=== PATIENT | male | born 1965 | race Caucasian/White ===

== ENCOUNTER 2025-06-18 14:48 | Emergency (ER) | payer OTHER, SELFPAY ==
[2025-06-18 14:55] VITALS: BMI 21.4
[2025-06-18] MEDS: XYLOCAINE VISCOUS CUP 15 ML PO (14:57)
[2025-06-18 15:00] VITALS: BP 175/101
--- NOTE | 2025-06-18 16:01 | ED.GENMED ---
History of Present Illness
<Ernie Dubois PA-C - Last Filed: 06/18/25 16:06>
General
Chief Complaint: Insect Sting
Source: patient
Exam Limitations: none
Time Seen by Provider: 06/18/25 15:04
History of Present Illness
History of Present Illness:
60-year-old male presents with foreign body sensation in left ear starting today. He is riding his bike and felt an insect behind his ear and no significant pain to the left ear. No other complaints
Past History
<MAHAD Servin Last Filed: 06/18/25 16:06>
Past History
ED Past Medical History: Other (Kidney stones) and Other (Chronic arm shoulder and leg pain, chronic pain syndrome/narcotic dependent�follows with pain management.)
ED Past Surgical History: Orthopedic (Ankle, pelvis)
Social History
Tobacco: Smoker
Alcohol: None
Personal:
Living: with family
Employment: Employed
Family History
Family History: Other (Uncontributory)
Phy Exam
<MAHAD Servin Last Filed: 06/18/25 16:06>
Physical Exam
Physical Exam:
General: Uncomfortable appearing male no acute distress
HEENT normal cephalic external canal with foreign body noted. There is a moderate mount of cerumen and there is well
Skin: Surrounding skin is without erythema
Course
<MAHAD Servin Last Filed: 06/18/25 16:06>
Orders/Labs/Results
Orders:
Orders
06/18/25 14:56
Viscous Lidocaine 2% [Xylocaine Viscous Cup] 15 ml .ROUTE .[facility]
06/18/25 14:57
Viscous Lidocaine 2% [Xylocaine Viscous Cup] 15 ml PO Q3HPRN PRN
Vital Signs
Initial and Last Documented VS:
Initial Vital Signs
Pulse Resp BP Pulse Ox
121 24 175/101 96
06/18/25 15:00 06/18/25 15:00 06/18/25 15:00 06/18/25 15:00
Last Documented Vital Signs
Pulse Resp BP Pulse Ox
121 24 175/101 96
06/18/25 15:00 06/18/25 15:00 06/18/25 15:00 06/18/25 15:00
<Aimee Leon DO - Last Filed: 06/18/25 16:07>
Orders/Labs/Results
Orders:
Orders
06/18/25 14:56
Viscous Lidocaine 2% [Xylocaine Viscous Cup] 15 ml .ROUTE .[facility]
06/18/25 14:57
Viscous Lidocaine 2% [Xylocaine Viscous Cup] 15 ml PO Q3HPRN PRN
Vital Signs
Initial and Last Documented VS:
Initial Vital Signs
Pulse Resp BP Pulse Ox
121 24 175/101 96
06/18/25 15:00 06/18/25 15:00 06/18/25 15:00 06/18/25 15:00
Last Documented Vital Signs
Pulse Resp BP Pulse Ox
121 24 175/101 96
06/18/25 15:00 06/18/25 15:00 06/18/25 15:00 06/18/25 15:00
<Ernie Dubois PA-C - Last Filed: 06/18/25 16:06>
MDM/Problems Addressed
Differential Diagnosis Includes:
Foreign body left ear. The ear was copiously irrigated with saline and multiple attempts were made with alligator forceps curettes and irrigation to remove the foreign body. Once the foreign body was in a good position was able to be removed with
a pair of alligator forceps in its entirety. The ear was reinspected tympanic membrane is intact but irritated will start on antibiotic drops for the ear.
<Ernie Dubois PA-C - Last Filed: 06/18/25 16:06>
*Pulse Oximetry
SaO2: 96
Oxygen Mode of Delivery: Room air
Patient hypoxic: no
*Critical Care Note
Total Time (30-74mins, 75-104mins- exclusive of procedures): Not Applicable
ED Attending Note
<Ernie Dubois PA-C - Last Filed: 06/18/25 16:06>
-
Portions of this chart may have been created with voice recognition software.� Occasional wrong word or��sound alike� substitutions may have occurred due to the inherent limitations of voice recognition software.
<Aimee Leon DO - Last Filed: 06/18/25 16:07>
ED Attending Note
Patient seen and examined by attending physician: Yes
I performed the substantive portion of visit, reviewed & personally made and approve the management plan that is documented in note by myself or VINCENT.: Yes
I performed a history and physical exam of patient and discussed management with resident, I reviewed resident's note and agree with documented findings and plan of care.: Yes
ED Attending Note:
60-year-old male presenting to the emergency department for concern of bug to the ear. Prior to arrival, patient was on his bicycle and felt tingling to his left ear with severe pain. Patient arrives to the emergency department by medics and
extremis due to pain and discomfort. Vital signs significant for high blood pressure and tachycardia, however, patient is discomfort
Prior to examination, did have nurse but this is lidocaine and patient's here because she still felt the bug moving around. On my exam, patient is still having discomfort, however does not feel the bug moving around anymore. Ear was irrigated, and
patient with suspicion for the in the ear. With the assistance of physician psychology assistant, multiple times irrigation, curette, suction. Ultimately able to get the be in appropriate position to remove alligator forcep. Eardrum intact. Due to
irritation, will start patient on antibiotic drops. Stable for discharge outpatient follow-up.
Discharge Plan
Departure
Patient Disposition: Home (Routine Discharge)
Discharge Problem:
Foreign body in ear
Prescriptions:
No Action
ibuprofen [Ibuprofen Jr Strength] 100 MG tablet,chewable
100 mg PO PRN PRN (Reason: pain)
pregabalin [Lyrica] 75 MG capsule
75 mg PO DAILY
oxycodone-acetaminophen 1 TABLET tablet
1 - 2 tab PO Q4HPRN PRN (Reason: prn for pain) Qty: 20 0RF
fentanyl 50 MCG patch 72 hour
50 mcg transdermal Q72H
ketorolac 10 MG tablet
10 mg PO QID Qty: 16 0RF
tamsulosin 0.4 MG capsule
0.4 mg PO HS Qty: 10 0RF
tamsulosin 0.4 MG capsule
0.4 mg PO DAILY Qty: 7 0RF
ondansetron [Zofran ODT] 8 MG tablet,disintegrating
8 mg PO TID PRN (Reason: nausea/vomiting) Qty: 20 0RF
ketorolac 10 MG tablet
10 mg PO Q6HPRN PRN (Reason: pain) Qty: 20 0RF
oxycodone 5 MG tablet
5 mg PO Q4HPRN PRN (Reason: pain) Qty: 14 0RF
Referrals:
Hugh Mckeon DO [Family Provider, Family Practice]
Interventions
Interventions:
*ED- Fall Risk Assessment Last Done: 06/18/25 14:55
*ED COVID-19 Vaccine History Last Done: 06/18/25 14:55
*ED Influenza Vaccine History Last Done: 06/18/25 14:55
ED-Skin Assessment Last Done: 06/18/25 14:55
ED- Pulmonary Assessment Last Done: 06/18/25 14:55
Discharge Date and Time
Print Language: CHINESE
[2025-06-18 16:11] VITALS: BP 162/92
[2025-06-18] MEDS: CORTISPORIN OTIC SUSPENSION 1 DROP OTIC (16:26)
== END 2025-06-18 16:28 | disposition home or self-care (01) ==
LOC: EMR 14:48
PROVIDERS: EMERGENCY PHYSICIAN Student in an Organized Health Care Education/Training Program; FAMILY PHYSICIAN Family Medicine
DX: T16.9XXA Foreign body in ear, unspecified ear, initial encounter (principal); W44.F4XA Insect entering into or through a natural orifice, initial encounter; Z87.442 Personal history of urinary calculi; F11.20 Opioid dependence, uncomplicated; F17.200 Nicotine dependence, unspecified, uncomplicated
CPT/HCPCS: 99282